=== PATIENT | female | born 1990 | race Caucasian/White ===

== ENCOUNTER 2016-07-31 08:03 | Day surgery (SDC) | payer OTHER ==
[~2016-07-31 08:03] MED LIST: CHLORHEXIDINE GLUC HIBICLENS 118 ML BTL TP ONE
[2016-07-31] MEDS ORDERED: LR 1,000 ML IV ONE (10:51)
[2016-07-31] MEDS ORDERED: fentaNYL 100 MCG/2 ML INJ ONE ×4 (11:12→14:01)
[2016-07-31] MEDS ORDERED: PROPOFOL 200 MG/20 ML VIAL ONE (11:12)
[2016-07-31] MEDS ORDERED: ROCURONIUM 50 MG/5 ML VIAL ONE (11:13)
[2016-07-31] MEDS ORDERED: BUPIVACAINE 0.25% 30 ML SDV ONE (11:14)
[2016-07-31] MEDS ORDERED: ONDANSETRON 4 MG/2 ML VIAL ONE (11:14)
[2016-07-31] MEDS ORDERED: DEXAMETHASONE 4 MG/ML VIAL ONE (11:14)
[2016-07-31] MEDS ORDERED: LIDOCAINE 2% 5 ML SDV ONE (11:14)
[2016-07-31] MEDS ORDERED: MIDAZOLAM 2 MG/2 ML VIAL ONE (11:21)
[2016-07-31] MEDS ORDERED: SKIN ADHESIVE (DERMABOND) 1 EACH TP ONE (11:31)
[2016-07-31] MEDS ORDERED: SURGIFLO MATRIX KIT WITH THROMBIN TP ONE (12:48)
[2016-07-31] MEDS ORDERED: SUGAMMADEX SODIUM 200 MG/2 ML VIAL IVP ONE (12:56)
[2016-07-31] MEDS ORDERED: DESFLURANE 240 ML BOTTLE IH ONE (12:59)
--- NOTE | 2016-07-31 13:24 | SUROPNOTE ---
[facility] Operative Report - Surgery [employer]icycle [employer]r Procedure Note 07/31/16 Patient: Mabel Crowder Preop Diagnosis: Right ovarian cyst, abnormal uterine bleeding Postop Diagnosis: Same Procedure: Diagnostic laparoscopy, right ovarian cystectomy, diagnostic hysteroscopy, dilation and curettage Fluids: 1000 ml crystalloid Urine: 50 ml EBL: Minimal Surgeon: Avery Unscrambler Surgeon: Vicente Kim Anesthesia: General with ET tube Anesthesiologist: Danika Findings: 7 cm right simple ovarian cyst. Normal uterus, left tube, and ovary. Normal intrauterine cavity. Fluid deficit 90 ml normal saline. Indication: Pt is a 25 year old G0 with a persistent right ovarian cyst since at least 2011, and abnormal uterine bleeding not responsive to medical management. After discussion of risks and benefits, she desires to proceed with surgical management. Details of procedure: Pt was brought to the operating room and general anesthesia was induced after confirming the correct patient and procedure. She was placed in dorsal lithotomy with armin stirrups and was prepped and draped in the normal sterile fashion, with a alegria catheter in place. A time out was performed. 5 ml of 0.25 % marcaine was injected into the umbilicus. A 5 mm incision was made. An attempt was made to place the veress needle, however it was found to be preperitoneal so it was abandoned. An attempt was then place to insert the trocar directly, however, this was also unsuccessful due to the fact the space had been partially insufflated. Then we performed a direct entry and placed the 5 mm trocar directly. the abdomen was insufflated to 15 mm/hg. The ovary overlying the cyst on the right ovary was incised using monopolar cautery, and then a laparoscopic needle connected to suction was used to drain the cyst. Clear/yellow fluid was noted, ~ 100 ml. The ovary was then opened further in order to facilitate access to the cyst wall, which was completely removed. There was one small nodule of caseous material that was also found and removed. Hemostasis was assured using the monopolar cautery, and surgiflow was placed inside the ovarian capsule. The gas was removed from the abdomen and all instruments were removed. The 3 5 mm skin incisions were closed with dermabond. We then proceeded with the hysteroscopy. The speculum was placed, and the anterior lip of the cervix grasped with a single toothed tenaculum. The 5 mm hysteroscope was introduced using normal saline as a medium. The cervix and intrauterine cavity were completely normal with no polyps, fibroids, or other anatomic findings. Both ostia were visualized. A sharp curettage was performed with scant return of tissue. All instruments were removed and hemostasis was noted. Counts correct x 2. Pt was awakened and brought to the recovery room. Mitzi Varela MD P [phone]
[2016-07-31] MEDS ORDERED: HYDROCODONE/APAP 5/325 TAB ONE (14:50)
== END 2016-07-31 15:10 | disposition home or self-care (01) ==
LOC: FSGY 08:03
PROVIDERS: ATTEND Obstetrics & Gynecology
PROC: 0UBC8ZX Excision of Cervix, Via Natural or Artificial Opening Endoscopic, Diagnostic (ICD-10-PCS; principal; 2016-07-31 10:00)
PROC: 0UB04ZZ Excision of Right Ovary, Percutaneous Endoscopic Approach (ICD-10-PCS; principal; 2016-07-31 10:00)
DX: N83.201 Unspecified ovarian cyst, right side (principal)
CPT/HCPCS: J1100; J2250; J2405; J2704; J3010